=== PATIENT | female | born 1955 | race Caucasian/White ===

== ENCOUNTER 2018-12-27 14:17 | Emergency (ER) | payer BC ==
[~2018-12-27] VITALS: Ht 165.1 cm; Wt 99.8 kg
[~2018-12-27 14:17] MED LIST: ADVAIR 250/501 EA INH; ALBUTEROL0.09 MG/A2 INH; ALEVE220 MG PO; ANTIVERT25 MG PO; ASPIRIN81 M1 PO; CIPRO500 MG PO; CLEOCIN150 MG PO; DELTASONE10 MG PO; DOXYCYCLINE100 M2 PO; DULE1ARO1 INH; FUROSEMIDE20 M1 PO; GEMFIBROZIL600 MG PO; HYDROCODONE BIT1 T11 PO; HYDRODIURIL25 MG PO; LASIX PO; LISINOPRIL20 MG PO; MELOXICAM15 MG PO; METFORMIN750 MG PO; MUCINEX1200 MG PO; Motrin,Rufen800 MG PO; NATURE'S BLEND F1 MG PO; NORVASC10 MG PO; PEN-VEE K500 MG PO; POTASSIUM; PREDNICOT20 MG PO; SPIRIVA -- 3018 MCG PO; TESSALON PERLE200 MG PO; TRAMADOL HCL50 MG PO; TYLENOL325 M1 PO; VENTOLIN 02.5 MG/3 M INH; VOLTAREN50 M1 PO; ZESTRIL40 MG PO; ZITHROMAX Z PA250 MG PO; ZITHROMAX Z-PA250 MG PO; ZOFRAN4 MG PO
[2018-12-27] MEDS ORDERED: CEFADROXIL500 M1 PO (14:31)
[2018-12-27] MEDS ORDERED: SEPTDS PO (14:31)
== END 2018-12-27 14:47 | disposition home or self-care (01) ==
LOC: ED 14:17
DX: L02.31 Cutaneous abscess of buttock (principal); Z88.6 Allergy status to analgesic agent; Z79.899 Other long term (current) drug therapy; Z79.82 Long term (current) use of aspirin; Z87.891 Personal history of nicotine dependence

== ENCOUNTER 2019-01-16 12:29 | Emergency (ER) | payer BC ==
[~2019-01-16] VITALS: Ht 162.5 cm; Wt 92.1 kg
--- NOTE | ~2019-01-16 | EKG ---
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
[~2019-01-16 12:29] MED LIST changes: +CEFADROXIL500 M1 PO; +SEPTDS PO
[2019-01-16] MEDS ORDERED: GOOD NEIGHBOR M25 M1 PO (12:42)
[2019-01-16 12:45] LABS: BASO % 0.5 % (0.0-1.0); EOS # 0.1 10*3/uL (0.0-0.4); EOS % 2.3 % (1.0-4.0); HEMATOCRIT 37.2 % (37.0-47.0); HEMOGLOBIN 12.6 g/dl (12.0-16.0); LYMPH # 1.4 10*3/uL (1.3-4.4); LYMPH % 23.6 % (27.0-41.0); MEAN CELL VOLUME 91.6 fl (81.0-99.0); MEAN CORPUSCULAR HGB CONC 33.9 g/dl (33.0-37.0); MEAN PLATELET VOLUME 9.1 fl (9.6-12.3); MONO # 0.4 10*3/uL (0.1-1.0); MONO % 7.5 % (3.0-9.0); NEUT # 3.8 10*3/uL (2.3-7.9); NEUT % 66.1 % (47.0-73.0); PLATELET COUNT AUTOMATED 212 10*3/uL (130-400); RED BLOOD COUNT 4.06 10*6/uL (4.10-5.10); RED CELL DISTRI WIDTH 13.8 % (0-14.5); WHITE BLOOD COUNT 5.7 10*3/uL (4.8-10.8)
[2019-01-16 13:03] LABS: ACT PARTIAL THROMBO TIME 26.8 SECONDS (20.0-32.1)
[2019-01-16 13:05] LABS: ALBUMIN 3.8 gm/dl (3.1-4.5); ALKALINE PHOSPHATASE 88 U/L (45-117); BUN 14 mg/dl (7-24); CHLORIDE 109 mmol/L (98-107); CREATININE 0.78 mg/dL (0.55-1.02); SGOT/AST 15 IU/L (3-35); SGPT/ALT 15 U/L (12-78); SODIUM 142 mmol/L (136-145); TOTAL PROTEIN 7.1 gm/dL (6.4-8.2)
[2019-01-16 13:06] LABS: TROPONIN I < 0.015 ng/ml (<0.045)
[2019-01-16] MEDS ORDERED: ZOFRAN4 MG PO (14:47)
[2019-01-16] MEDS ORDERED: MECLIZINE HCL25 M2 PO (14:48)
== END 2019-01-16 14:53 | disposition home or self-care (01) ==
LOC: ED 12:29
PROVIDERS: Emergency Medicine
DX: R42 Dizziness and giddiness (principal); H53.8 Other visual disturbances; R11.0 Nausea; I10 Essential (primary) hypertension; E78.5 Hyperlipidemia, unspecified; E11.9 Type 2 diabetes mellitus without complications; R79.1 Abnormal coagulation profile; E66.01 Morbid (severe) obesity due to excess calories; Z88.6 Allergy status to analgesic agent; Z79.899 Other long term (current) drug therapy; Z79.82 Long term (current) use of aspirin; Z87.891 Personal history of nicotine dependence

== ENCOUNTER → 2020-04-06 | Outpatient (CLI) | payer BC | END | disposition home or self-care (01) | LOC: LAB 08:08 | PROVIDERS: ATTEND Psychiatry & Neurology Psychiatry | DX: Z13.29 Encounter for screening for other suspected endocrine disorder (principal); I10 Essential (primary) hypertension; E78.2 Mixed hyperlipidemia; Z13.228 Encounter for screening for other metabolic disorders ==

== ENCOUNTER 2020-07-03 11:45 | Emergency (ER) | payer BC ==
[~2020-07-03] VITALS: Wt 93.0 kg
[~2020-07-03 11:45] MED LIST changes: +GOOD NEIGHBOR M25 M1 PO; +MECLIZINE HCL25 M2 PO
== END 2020-07-03 17:54 | disposition home or self-care (01) ==
LOC: ED 11:45
DX: S83.92XA Sprain of unspecified site of left knee, initial encounter (principal); Z88.6 Allergy status to analgesic agent; Z79.899 Other long term (current) drug therapy; Z79.82 Long term (current) use of aspirin; Z87.891 Personal history of nicotine dependence; W01.0XXA Fall on same level from slipping, tripping and stumbling without subsequent striking against object, initial encounter; Y93.89 Activity, other specified; Y92.89 Other specified places as the place of occurrence of the external cause; Y99.8 Other external cause status

== ENCOUNTER 2020-12-22 12:54 | Inpatient (IN) | payer BC ==
[~2020-12-22] VITALS: Ht 154.9 cm; Wt 85.7 kg
[2020-12-22] VITALS (8 sets, daily range): BP systolic 136–159; BP diastolic 60–74
[2020-12-22 13:18] LABS: BASO % 0.4 % (0.0-1.0); EOS % 0.1 % (1.0-4.0); HEMATOCRIT 36.9 % (37.0-47.0); LYMPH # 0.8 10*3/uL (1.3-4.4); LYMPH % 7.4 % (27.0-41.0); MEAN CELL VOLUME 90.7 fl (81.0-99.0); MEAN CORPUSCULAR HGB 30.5 pg (27.0-31.0); MEAN CORPUSCULAR HGB CONC 33.6 g/dl (33.0-37.0); MEAN PLATELET VOLUME 9.2 fl (9.6-12.3); MONO % 9.3 % (3.0-9.0); NEUT # 9.1 10*3/uL (2.3-7.9); NEUT % 82.3 % (47.0-73.0); PLATELET COUNT AUTOMATED 309 10*3/uL (130-400); RED BLOOD COUNT 4.07 10*6/uL (4.10-5.10); RED CELL DISTRI WIDTH 13.1 % (0-14.5)
[2020-12-22 13:22] LABS: ABG BASE EXCESS -2.6 mmol/L (-2.0-2.0); ARTERIAL BLOOD GAS PH 7.46 (7.35-7.45)
[2020-12-22 13:34] LABS: ALBUMIN 2.9 gm/dl (3.1-4.5); ALKALINE PHOSPHATASE 104 U/L (45-117); BUN 11 mg/dl (7-24); CHLORIDE 103 mmol/L (98-107); CREATININE 0.76 mg/dL (0.55-1.02); POTASSIUM 3.6 mmol/L (3.5-5.1); SGOT/AST 17 IU/L (3-35); SGPT/ALT 14 U/L (12-78); SODIUM 132 mmol/L (136-145); TOTAL PROTEIN 7.7 gm/dL (6.4-8.2)
[2020-12-22 13:35] LABS: TROPONIN I < 0.015 ng/ml (<0.045)
[2020-12-22 17:57] LABS: BILIRUBIN Negative (Negative); BLOOD Trace-Lysed (Negative); CLARITY Clear (Clear); COLOR Yellow (Yellow); GLUCOSE Negative (Negative); KETONE Trace (Negative); LEUKO ESTERASE Negative (Negative); NITRITE Negative (Negative); PH 5.5 (4.5-8.0); SPECIFIC GRAVITY <= 1.005 (1.001-1.030); UROBILINOGEN 0.2 E.U./dl (0.0-1.0)
[2020-12-22 18:10] LABS: RBC 0-2 rbc/hpf (0-2)
[2020-12-23] VITALS: BP 166/81
[2020-12-23 06:08] LABS: ALBUMIN 2.7 gm/dl (3.1-4.5); ALKALINE PHOSPHATASE 103 U/L (45-117); CHLORIDE 104 mmol/L (98-107); CHOLESTEROL 144 mg/dL (<200); CREATININE 0.89 mg/dL (0.55-1.02); FREE T4 1.47 ng/dl (0.76-1.46); LDL CHOLESTEROL 89 mg/dL (9-159); POTASSIUM 3.8 mmol/L (3.5-5.1); SGOT/AST 34 IU/L (3-35); SGPT/ALT 23 U/L (12-78); SODIUM 138 mmol/L (136-145); TOTAL PROTEIN 7.8 gm/dL (6.4-8.2); TRIGLYCERIDES 145 mg/dl (<150)
[2020-12-23 06:12] LABS: HEMATOCRIT 35.6 % (37.0-47.0); MEAN CELL VOLUME 91.8 fl (81.0-99.0); MEAN CORPUSCULAR HGB 29.9 pg (27.0-31.0); MEAN CORPUSCULAR HGB CONC 32.6 g/dl (33.0-37.0); MEAN PLATELET VOLUME 9.6 fl (9.6-12.3); PLATELET COUNT AUTOMATED 283 10*3/uL (130-400); RED BLOOD COUNT 3.88 10*6/uL (4.10-5.10); RED CELL DISTRI WIDTH 13.2 % (0-14.5); WHITE BLOOD COUNT 8.6 10*3/uL (4.8-10.8)
[2020-12-23 06:23] LABS: BUN 20 mg/dl (7-24)
[2020-12-23 06:35] LABS: ACT PARTIAL THROMBO TIME 41.6 SECONDS (20.0-32.1); INTERNATIONAL NORM RATIO 1.1 (2.0-3.5)
[2020-12-23 07:17] LABS: TOTAL CELLS COUNTED 100 #CELLS
[2020-12-23 07:18] LABS: PLATELET SUFFICIENCY NORMAL (NORMAL); POLYCHROMASIA SLIGHT
[2020-12-23 08:00] VITALS: BP 155/95
[2020-12-23 12:00] VITALS: BP 145/66
[2020-12-23 16:00] VITALS: BP 139/69
[2020-12-23 20:00] VITALS: BP 136/79
[2020-12-24] VITALS: BP 140/69
[2020-12-24 08:12] LABS: HEMATOCRIT 34.7 % (37.0-47.0); MEAN CELL VOLUME 90.1 fl (81.0-99.0); MEAN CORPUSCULAR HGB 30.1 pg (27.0-31.0); MEAN CORPUSCULAR HGB CONC 33.4 g/dl (33.0-37.0); MEAN PLATELET VOLUME 9.8 fl (9.6-12.3); PLATELET COUNT AUTOMATED 349 10*3/uL (130-400); RED BLOOD COUNT 3.85 10*6/uL (4.10-5.10); RED CELL DISTRI WIDTH 13.2 % (0-14.5); WHITE BLOOD COUNT 12.7 10*3/uL (4.8-10.8)
[2020-12-24 08:24] LABS: CHLORIDE 106 mmol/L (98-107); CREATININE 0.78 mg/dL (0.55-1.02); POTASSIUM 3.5 mmol/L (3.5-5.1); SODIUM 137 mmol/L (136-145)
[2020-12-24 08:39] LABS: PLATELET SUFFICIENCY NORMAL (NORMAL); TOTAL CELLS COUNTED 100 #CELLS
[2020-12-24 08:53] LABS: BUN 33 mg/dl (7-24)
[2020-12-24 14:53] VITALS: BP 133/70
[2020-12-24 16:00] VITALS: BP 124/59
[2020-12-24 20:00] VITALS: BP 167/83
[2020-12-25] VITALS: BP 151/71
[2020-12-25 06:42] LABS: BASO % 0.2 % (0.0-1.0); LYMPH # 0.7 10*3/uL (1.3-4.4); LYMPH % 5.6 % (27.0-41.0); MEAN CELL VOLUME 90.4 fl (81.0-99.0); MEAN CORPUSCULAR HGB 29.2 pg (27.0-31.0); MEAN CORPUSCULAR HGB CONC 32.3 g/dl (33.0-37.0); MEAN PLATELET VOLUME 9.3 fl (9.6-12.3); MONO # 0.7 10*3/uL (0.1-1.0); MONO % 5.7 % (3.0-9.0); NEUT # 10.1 10*3/uL (2.3-7.9); NEUT % 86.2 % (47.0-73.0); PLATELET COUNT AUTOMATED 376 10*3/uL (130-400); RED BLOOD COUNT 3.87 10*6/uL (4.10-5.10); RED CELL DISTRI WIDTH 13.1 % (0-14.5); WHITE BLOOD COUNT 11.7 10*3/uL (4.8-10.8)
[2020-12-25 06:58] LABS: ALBUMIN 2.8 gm/dl (3.1-4.5); BUN 30 mg/dl (7-24); CHLORIDE 108 mmol/L (98-107); CREATININE 0.73 mg/dL (0.55-1.02); POTASSIUM 3.3 mmol/L (3.5-5.1); SGOT/AST 35 IU/L (3-35); SGPT/ALT 65 U/L (12-78); SODIUM 141 mmol/L (136-145); TOTAL PROTEIN 6.9 gm/dL (6.4-8.2)
[2020-12-25 07:01] LABS: ALKALINE PHOSPHATASE 99 U/L (45-117)
[2020-12-25 08:00] VITALS: BP 166/70
[2020-12-25 12:00] VITALS: BP 152/68
[2020-12-25] MEDS ORDERED: PREDNISONE10 MG PO (13:26)
[2020-12-25] MEDS ORDERED: ZITHROMAX250 MG PO (13:26)
== END 2020-12-25 16:30 | disposition home or self-care (01) | DRG 871 ==
LOC: ED 12:54 → EDHOLD 14:01 → 4E 14:01
PROVIDERS: Emergency Medicine; Social Worker Clinical; Student in an Organized Health Care Education/Training Program; ADMIT Student in an Organized Health Care Education/Training Program; ATTEND Student in an Organized Health Care Education/Training Program
DX: A41.9 Sepsis, unspecified organism (principal); J96.01 Acute respiratory failure with hypoxia; J69.0 Pneumonitis due to inhalation of food and vomit; E87.1 Hypo-osmolality and hyponatremia; E44.0 Moderate protein-calorie malnutrition; E87.3 Alkalosis; Z20.822 Contact with and (suspected) exposure to COVID-19; J43.9 Emphysema, unspecified; I10 Essential (primary) hypertension; E78.5 Hyperlipidemia, unspecified; R73.9 Hyperglycemia, unspecified; E78.2 Mixed hyperlipidemia; E66.01 Morbid (severe) obesity due to excess calories; R65.20 Severe sepsis without septic shock; D32.9 Benign neoplasm of meninges, unspecified; E87.6 Hypokalemia; E55.9 Vitamin D deficiency, unspecified; Z98.891 History of uterine scar from previous surgery; Z88.6 Allergy status to analgesic agent; Z88.5 Allergy status to narcotic agent; Z87.891 Personal history of nicotine dependence; Z79.82 Long term (current) use of aspirin; Z79.899 Other long term (current) drug therapy; Z98.51 Tubal ligation status

== ENCOUNTER 2021-04-14 11:32 | Emergency (ER) | payer MEDICARE ==
[~2021-04-14 11:32] MED LIST changes: +PREDNISONE10 MG PO; +ZITHROMAX250 MG PO
== END 2021-04-14 12:09 | disposition home or self-care (01) ==
LOC: ED 11:32
DX: H11.32 Conjunctival hemorrhage, left eye (principal); Z88.6 Allergy status to analgesic agent; Z79.899 Other long term (current) drug therapy; Z79.82 Long term (current) use of aspirin; Z87.891 Personal history of nicotine dependence

== ENCOUNTER 2023-09-08 18:53 | Emergency (ER) | payer MEDICARE ==
[2023-09-08 19:26] LABS: BASO # 0.1 10*3/uL (0.0-0.1); BASO % 0.6 % (0.0-1.0); EOS # 0.1 10*3/uL (0.0-0.4); EOS % 1.3 % (1.0-4.0); HEMATOCRIT 39.6 % (37.0-47.0); LYMPH # 1.6 10*3/uL (1.3-4.4); LYMPH % 19.9 % (27.0-41.0); MEAN CELL VOLUME 90.8 fl (81.0-99.0); MEAN CORPUSCULAR HGB 29.6 pg (27.0-31.0); MEAN CORPUSCULAR HGB CONC 32.6 g/dl (33.0-37.0); MEAN PLATELET VOLUME 9.5 fl (9.6-12.3); MONO # 0.4 10*3/uL (0.1-1.0); MONO % 5.1 % (3.0-9.0); NEUT # 5.7 10*3/uL (2.3-7.9); NEUT % 72.8 % (47.0-73.0); PLATELET COUNT AUTOMATED 260 10*3/uL (130-400); RED BLOOD COUNT 4.36 10*6/uL (4.10-5.10); RED CELL DISTRI WIDTH 13.9 % (0-14.5); WHITE BLOOD COUNT 7.8 10*3/uL (4.8-10.8)
[2023-09-08 19:42] LABS: ALKALINE PHOSPHATASE 127 U/L (46-116); BUN 15 mg/dl (9-23); CHLORIDE 105 mmol/L (98-107); LIPASE 33 U/L (12-53); POTASSIUM 3.1 mmol/L (3.4-5.1); TOTAL PROTEIN 6.8 gm/dL (6.0-8.0)
[2023-09-08 19:49] LABS: SGPT/ALT < 7 U/L (5-49)
[2023-09-08 19:52] LABS: COLOR Yellow (Yellow)
[2023-09-08 19:53] LABS: BILIRUBIN Negative (Negative); BLOOD Trace-Intact (Negative); CLARITY Clear (Clear); GLUCOSE Negative (Negative); KETONE Negative (Negative); LEUKO ESTERASE Negative (Negative); NITRITE Negative (Negative); UROBILINOGEN 0.2 E.U./dl (0.0-1.0)
[2023-09-08 19:56] LABS: BACTERIA 1+
[2023-09-08] MEDS ORDERED: POTASSIUM CHLORIDE 20 MEQ TAB PO ONE (20:10)
[2023-09-08] MEDS ORDERED: Ciprofloxacin Hydrochloride 500 MG TAB PO ONE (20:10)
[2023-09-08] MEDS ORDERED: CIPRO500 MG PO (20:12)
[2023-09-08] MEDS ORDERED: SODIUM CHLORIDE 0.9% 500 ML IV ONE (20:15)
== END 2023-09-08 21:12 | disposition home or self-care (01) ==
LOC: ED 18:53
PROVIDERS: Internal Medicine
DX: N39.0 Urinary tract infection, site not specified (principal); E87.6 Hypokalemia; J44.9 Chronic obstructive pulmonary disease, unspecified; Z88.6 Allergy status to analgesic agent; Z88.5 Allergy status to narcotic agent; Z79.2 Long term (current) use of antibiotics; Z79.899 Other long term (current) drug therapy; Z79.82 Long term (current) use of aspirin; Z98.890 Other specified postprocedural states; Z98.51 Tubal ligation status; Z90.711 Acquired absence of uterus with remaining cervical stump; Z87.891 Personal history of nicotine dependence

== ENCOUNTER 2024-01-23 15:15 | Emergency (ER) | payer MEDICARE ==
[~2024-01-23] VITALS: Ht 165.1 cm
[2024-01-23] MEDS ORDERED: METHOCARBAMOL500 M1 PO (15:53)
[2024-01-23] MEDS ORDERED: methylPREDNISolone sod succ 125 MG VIAL IM ONE (15:55)
[2024-01-23] MEDS ORDERED: Ketorolac Tromethamine 30 MG/ML VIAL IM ONE (15:55)
== END 2024-01-23 16:07 | disposition home or self-care (01) ==
LOC: ED 15:15
DX: M54.42 Lumbago with sciatica, left side (principal); M25.562 Pain in left knee; I10 Essential (primary) hypertension; J45.909 Unspecified asthma, uncomplicated; Z88.6 Allergy status to analgesic agent; Z88.5 Allergy status to narcotic agent; Z98.890 Other specified postprocedural states; Z98.51 Tubal ligation status; Z90.710 Acquired absence of both cervix and uterus; Z87.891 Personal history of nicotine dependence

== ENCOUNTER 2024-02-01 14:15 | Inpatient (IN) | payer MEDICARE ==
[~2024-02-01] VITALS: Ht 160 cm; Wt 76.4 kg
[~2024-02-01 14:15] MED LIST changes: +METHOCARBAMOL500 M1 PO
[2024-02-01] MEDS ORDERED: CIPRO500 MG PO (15:21)
[2024-02-01] MEDS ORDERED: VITAMIN D350 MCG PO (15:21)
[2024-02-01] MEDS ORDERED: LORazepam 1 MG TAB PO PRN (15:35)
[2024-02-01] MEDS ORDERED: LORazepam 2 MG/ML VIAL IM PRN (15:35)
[2024-02-01] MEDS ORDERED: Ziprasidone Mesylate 20 MG VIAL IM PRN (15:40)
[2024-02-01 16:21] VITALS: BP 148/68
[2024-02-01] MEDS ORDERED: Water, Sterile 10 ML VIAL IM PRN (16:50)
[2024-02-01] MEDS ORDERED: MG-AL HYDROXIDE/SIMETICONE 30 ML UDC PO PRN (17:30)
[2024-02-01] MEDS ORDERED: ACETAMINOPHEN 325 MG TAB PO PRN (17:30)
[2024-02-01] MEDS ORDERED: Magnesium Hydroxide 30 ML UDC PO PRN (17:30)
[2024-02-01] MEDS ORDERED: Menthol/Zinc Oxide 4 GM THIN T PRN (17:40)
[2024-02-01 20:00] VITALS: BP 178/80
[2024-02-01] MEDS ORDERED: LISINOPRIL 20 MG TAB PO SCH (20:20)
[2024-02-01] MEDS ORDERED: hydrOXYzine pamoate 25 MG CAP PO PRN (20:30)
[2024-02-01] MEDS ORDERED: RISPERIDONE 0.5 MG TAB PO SCH (21:00)
[2024-02-02 07:19] LABS: BASO % 0.4 % (0.0-1.0); EOS # 0.1 10*3/uL (0.0-0.4); EOS % 1.6 % (1.0-4.0); HEMATOCRIT 33.7 % (37.0-47.0); LYMPH % 18.3 % (27.0-41.0); MEAN CELL VOLUME 89.6 fl (81.0-99.0); MEAN CORPUSCULAR HGB 30.1 pg (27.0-31.0); MEAN CORPUSCULAR HGB CONC 33.5 g/dl (33.0-37.0); MEAN PLATELET VOLUME 9.4 fl (9.6-12.3); MONO # 0.3 10*3/uL (0.1-1.0); MONO % 6.2 % (3.0-9.0); NEUT % 72.6 % (47.0-73.0); PLATELET COUNT AUTOMATED 208 10*3/uL (130-400); RED BLOOD COUNT 3.76 10*6/uL (4.10-5.10); RED CELL DISTRI WIDTH 14.2 % (0-14.5); WHITE BLOOD COUNT 5.5 10*3/uL (4.8-10.8)
[2024-02-02 08:10] VITALS: BP 138/60
[2024-02-02 08:13] LABS: ALKALINE PHOSPHATASE 88 U/L (46-116); BUN 10 mg/dl (9-23); CHLORIDE 106 mmol/L (98-107); CHOLESTEROL 115 mg/dL (<200); LDL CHOLESTEROL 50 mg/dL (9-159); POTASSIUM 3.8 mmol/L (3.4-5.1); TOTAL PROTEIN 5.7 gm/dL (6.0-8.0); TRIGLYCERIDES 221 mg/dl (<150)
[2024-02-02 08:56] LABS: SGPT/ALT < 7 U/L (5-49)
[2024-02-02 09:35] LABS: VITAMIN D, 25-HYDROXY 32.8 ng/mL (30-100)
[2024-02-02] MEDS ORDERED: Meloxicam 15 MG TAB PO SCH (10:00)
[2024-02-02] MEDS ORDERED: Ciprofloxacin Hydrochloride 500 MG TAB PO SCH (10:00)
[2024-02-02] MEDS ORDERED: GEMFIBROZIL 600 MG TAB PO SCH (10:00)
[2024-02-02] MEDS ORDERED: Cholecalciferol 2,000 UNIT TABLET (50 MCG) PO SCH (10:00)
[2024-02-02 14:00] VITALS: BP 138/60
[2024-02-02] MEDS ORDERED: NYSTATIN 15 GM BOT T PRN ×2 (17:10)
[2024-02-02 20:00] VITALS: BP 128/58
[2024-02-02] MEDS ORDERED: Memantine Hydrochloride 5 MG TAB PO SCH (21:00)
[2024-02-03 07:38] VITALS: BP 124/66
[2024-02-03] MEDS ORDERED: Rivastigmine Tartrate 4.6 MG/24 HR PATCH T SCH (09:00)
[2024-02-03] MEDS ORDERED: Folic Acid/Vitamin B Complex 1 TAB TAB PO SCH (10:00)
[2024-02-03 14:00] VITALS: BP 124/66
[2024-02-03 20:00] VITALS: BP 130/61
[2024-02-03] MEDS ORDERED: Memantine Hydrochloride 5 MG TAB PO SCH (21:00)
[2024-02-04 07:54] VITALS: BP 130/58
[2024-02-04] MEDS ORDERED: Memantine Hydrochloride 5 MG TAB PO SCH (09:00)
[2024-02-04] MEDS ORDERED: LIDOCAINE 1 EA PATCH T SCH (09:00)
[2024-02-04] MEDS ORDERED: Rivastigmine Tartrate 9.5 MG/24 HR PATCH T SCH (09:00)
[2024-02-04 14:00] VITALS: BP 130/58
[2024-02-04 20:00] VITALS: BP 113/55
[2024-02-04] MEDS ORDERED: Memantine Hydrochloride 10 MG TAB PO SCH (21:00)
[2024-02-05 07:59] LABS: POTASSIUM 4.9 mmol/L (3.4-5.1)
[2024-02-05 08:00] VITALS: BP 141/55
[2024-02-05] MEDS ORDERED: SODIUM CHLORIDE 0.9% 1,000 ML IV ONE (11:00)
[2024-02-05 20:00] VITALS: BP 141/59
[2024-02-06 06:47] LABS: POTASSIUM 4.4 mmol/L (3.4-5.1)
[2024-02-06 08:00] VITALS: BP 148/89
[2024-02-06] MEDS ORDERED: amLODIPine besylate 5 MG TAB PO SCH (09:00)
[2024-02-06 19:11] VITALS: BP 120/60
[2024-02-06] MEDS ORDERED: RISPERIDONE 1 MG TAB PO SCH (21:00)
[2024-02-07 08:00] VITALS: BP 154/79
[2024-02-07] MEDS ORDERED: amLODIPine besylate 10 MG TAB PO SCH (09:00)
[2024-02-07] MEDS ORDERED: RIVASTIGMINE 13.3 MG/24 HR TDM T SCH (09:00)
[2024-02-07 18:55] VITALS: BP 127/55
[2024-02-07] MEDS ORDERED: Memantine Hydrochloride 10 MG TAB PO SCH (21:00)
[2024-02-07] MEDS ORDERED: ZOLPIDEM TARTRATE 5 MG TAB PO SCH (21:00)
[2024-02-08 08:00] VITALS: BP 135/70
[2024-02-08 08:03] LABS: POTASSIUM 4.9 mmol/L (3.4-5.1)
[2024-02-08 20:00] VITALS: BP 116/60
[2024-02-09 08:08] VITALS: BP 123/57
[2024-02-09 20:00] VITALS: BP 111/52
[2024-02-09] MEDS ORDERED: Mirtazapine 15 MG TAB PO SCH (21:00)
[2024-02-09] MEDS ORDERED: RISPERIDONE 0.5 MG TAB PO SCH (21:00)
[2024-02-10 08:03] VITALS: BP 135/74
[2024-02-10 20:00] VITALS: BP 147/69
[2024-02-10] MEDS ORDERED: QUETIAPINE FUMARATE 25 MG TAB PO SCH (21:00)
[2024-02-11 07:37] VITALS: BP 123/58
[2024-02-11 20:00] VITALS: BP 128/60
[2024-02-12 07:48] VITALS: BP 134/65
[2024-02-12 19:17] VITALS: BP 123/66
[2024-02-13 08:00] VITALS: BP 128/70
[2024-02-13 09:06] LABS: BASO # 0.1 10*3/uL (0.0-0.1); BASO % 0.9 % (0.0-1.0); EOS # 0.2 10*3/uL (0.0-0.4); EOS % 2.8 % (1.0-4.0); HEMATOCRIT 31.1 % (37.0-47.0); LYMPH # 1.3 10*3/uL (1.3-4.4); MEAN CORPUSCULAR HGB 29.3 pg (27.0-31.0); MEAN CORPUSCULAR HGB CONC 31.8 g/dl (33.0-37.0); MEAN PLATELET VOLUME 9.1 fl (9.6-12.3); MONO # 0.4 10*3/uL (0.1-1.0); MONO % 7.4 % (3.0-9.0); NEUT # 3.8 10*3/uL (2.3-7.9); NEUT % 65.6 % (47.0-73.0); PLATELET COUNT AUTOMATED 233 10*3/uL (130-400); RED BLOOD COUNT 3.38 10*6/uL (4.10-5.10); RED CELL DISTRI WIDTH 14.3 % (0-14.5); WHITE BLOOD COUNT 5.8 10*3/uL (4.8-10.8)
[2024-02-13 09:26] LABS: ALKALINE PHOSPHATASE 82 U/L (46-116); BUN 21 mg/dl (9-23); CHLORIDE 105 mmol/L (98-107); POTASSIUM 4.6 mmol/L (3.4-5.1); TOTAL PROTEIN 5.8 gm/dL (6.0-8.0)
[2024-02-13 09:29] LABS: SGPT/ALT < 7 U/L (5-49)
[2024-02-13 19:25] VITALS: BP 113/55
[2024-02-14 08:00] VITALS: BP 140/70
[2024-02-14 20:00] VITALS: BP 138/62
[2024-02-15 08:28] VITALS: BP 117/55
[2024-02-15] MEDS ORDERED: MIRTAZAPINE15 M2 PO (09:21)
[2024-02-15] MEDS ORDERED: MEMANTINE HCL10 MG PO (09:21)
[2024-02-15] MEDS ORDERED: FOLTABS 800 TA1 EACH PO (09:21)
[2024-02-15] MEDS ORDERED: QUETIAPINE FUMA25 MG PO (09:21)
[2024-02-15] MEDS ORDERED: VITAMIN D350 MCG PO (09:21)
[2024-02-15] MEDS ORDERED: RIVASTIGMINE1 EAC2 T (09:21)
[2024-02-15] MEDS ORDERED: AMLODIPINE BESY10 MG PO (10:45)
== END 2024-02-15 20:07 | disposition home or self-care (01) | DRG 885 ==
LOC: 3N 14:15 → 4E 16:43 → 3N 17:00
PROVIDERS: Nurse Practitioner; Registered Nurse; ADMIT Psychiatry & Neurology Psychiatry; ATTEND Psychiatry & Neurology Psychiatry
PROC: GZHZZZZ Group Psychotherapy (ICD-10-PCS; principal; 2024-02-02)
PROC: GZ51ZZZ Individual Psychotherapy, Behavioral (ICD-10-PCS; 2024-02-02)
DX: F33.3 Major depressive disorder, recurrent, severe with psychotic symptoms (principal); N17.0 Acute kidney failure with tubular necrosis; E11.65 Type 2 diabetes mellitus with hyperglycemia; G93.41 Metabolic encephalopathy; F23 Brief psychotic disorder; N30.01 Acute cystitis with hematuria; E87.1 Hypo-osmolality and hyponatremia; E44.0 Moderate protein-calorie malnutrition; F02.82 Dementia in other diseases classified elsewhere, unspecified severity, with psychotic disturbance; E55.9 Vitamin D deficiency, unspecified; E87.6 Hypokalemia; E66.01 Morbid (severe) obesity due to excess calories; G30.9 Alzheimer's disease, unspecified; J44.9 Chronic obstructive pulmonary disease, unspecified; I10 Essential (primary) hypertension; E78.5 Hyperlipidemia, unspecified; D64.9 Anemia, unspecified; S83.8X2S Sprain of other specified parts of left knee, sequela; X58.XXXS Exposure to other specified factors, sequela; J43.9 Emphysema, unspecified; R54 Age-related physical debility; Z66 Do not resuscitate; Z88.5 Allergy status to narcotic agent; Z88.6 Allergy status to analgesic agent; Z98.51 Tubal ligation status; Z98.891 History of uterine scar from previous surgery; Z82.49 Family history of ischemic heart disease and other diseases of the circulatory system; Z79.899 Other long term (current) drug therapy

== ENCOUNTER 2024-04-07 16:52 | Inpatient (IN) | payer MEDICARE ==
[~2024-04-07] VITALS: Ht 165.1 cm; Wt 81.4 kg
[~2024-04-07 16:52] MED LIST changes: +AMLODIPINE BESY10 MG PO; +FOLTABS 800 TA1 EACH PO; +MEMANTINE HCL10 MG PO; +MIRTAZAPINE15 M2 PO; +QUETIAPINE FUMA25 MG PO; +RIVASTIGMINE1 EAC2 T; +VITAMIN D350 MCG PO
[2024-04-07 16:59] VITALS: BP 136/78
[2024-04-07] MEDS ORDERED: Acetaminophen/Oxycodone 5 MG/325 MG TABLET PO ONE (17:00)
[2024-04-07] MEDS ORDERED: SEROQUEL50 MG PO (17:29)
[2024-04-07] MEDS ORDERED: LISINOPRIL40 MG PO (17:30)
[2024-04-07] MEDS ORDERED: MECLIZINE HCL25 M2 PO (17:31)
[2024-04-07] MEDS ORDERED: SODIUM CHLORIDE 0.9% 1,000 ML IV ONE (17:40)
[2024-04-07] MEDS ORDERED: Ondansetron Hydrochloride 4 MG/2 ML VIAL IV ONE (17:45)
[2024-04-07] MEDS ORDERED: MORPHINE Sulfate 2 MG/ML SYR IV ONE (17:45)
[2024-04-07 18:01] LABS: BASO % 0.2 % (0.0-1.0); EOS # 0.1 10*3/uL (0.0-0.4); EOS % 1.4 % (1.0-4.0); HEMATOCRIT 32.1 % (37.0-47.0); LYMPH # 0.9 10*3/uL (1.3-4.4); LYMPH % 10.4 % (27.0-41.0); MEAN CELL VOLUME 93.9 fl (81.0-99.0); MEAN CORPUSCULAR HGB 30.4 pg (27.0-31.0); MEAN CORPUSCULAR HGB CONC 32.4 g/dl (33.0-37.0); MEAN PLATELET VOLUME 9.2 fl (9.6-12.3); MONO # 0.6 10*3/uL (0.1-1.0); MONO % 6.9 % (3.0-9.0); NEUT # 6.8 10*3/uL (2.3-7.9); NEUT % 80.7 % (47.0-73.0); PLATELET COUNT AUTOMATED 186 10*3/uL (130-400); RED BLOOD COUNT 3.42 10*6/uL (4.10-5.10); RED CELL DISTRI WIDTH 14.4 % (0-14.5); WHITE BLOOD COUNT 8.5 10*3/uL (4.8-10.8)
[2024-04-07 18:23] LABS: POTASSIUM 3.3 mmol/L (3.4-5.1)
[2024-04-07] MEDS ORDERED: Ondansetron Hydrochloride 4 MG/2 ML VIAL IV PRN (18:25)
[2024-04-07] MEDS ORDERED: MORPHINE Sulfate 2 MG/ML SYR IV PRN (18:25)
[2024-04-07 18:32] LABS: ACT PARTIAL THROMBO TIME 28.5 SECONDS (20.0-32.1)
[2024-04-07] MEDS ORDERED: POTASSIUM CHLORIDE IN WATER 100 ML IV SCH (19:00)
[2024-04-07] MEDS ORDERED: SODIUM CHLORIDE 0.9% 1,000 ML IV SCH (19:20)
[2024-04-07] MEDS ORDERED: BISACODYL 5 MG TAB PO PRN (19:20)
[2024-04-07] MEDS ORDERED: Magnesium Hydroxide 30 ML UDC PO PRN (19:20)
[2024-04-07] MEDS ORDERED: POTASSIUM CHLORIDE 20 MEQ TAB PO ONE (19:25)
[2024-04-07 19:28] VITALS: BP 122/60
[2024-04-07 21:54] VITALS: BP 120/66
[2024-04-08] VITALS (11 sets, daily range): BP systolic 108–171; BP diastolic 60–93
[2024-04-08 07:22] LABS: BASO % 0.4 % (0.0-1.0); EOS # 0.2 10*3/uL (0.0-0.4); HEMATOCRIT 32.8 % (37.0-47.0); LYMPH # 1.2 10*3/uL (1.3-4.4); LYMPH % 17.5 % (27.0-41.0); MEAN CELL VOLUME 92.7 fl (81.0-99.0); MEAN CORPUSCULAR HGB 30.2 pg (27.0-31.0); MEAN CORPUSCULAR HGB CONC 32.6 g/dl (33.0-37.0); MEAN PLATELET VOLUME 9.1 fl (9.6-12.3); MONO # 0.4 10*3/uL (0.1-1.0); MONO % 6.4 % (3.0-9.0); NEUT % 72.6 % (47.0-73.0); PLATELET COUNT AUTOMATED 179 10*3/uL (130-400); RED BLOOD COUNT 3.54 10*6/uL (4.10-5.10); RED CELL DISTRI WIDTH 14.7 % (0-14.5); WHITE BLOOD COUNT 6.9 10*3/uL (4.8-10.8)
[2024-04-08 07:47] LABS: BUN 14 mg/dl (9-23); CHLORIDE 111 mmol/L (98-107); POTASSIUM 4.2 mmol/L (3.4-5.1)
[2024-04-08] MEDS ORDERED: TRANEXAMIC ACID IN NACL,ISO-OS 100 ML IV ONE ×2 (10:00→14:00)
[2024-04-08] MEDS ORDERED: Cholecalciferol 2,000 UNIT TABLET (50 MCG) PO SCH (10:00)
[2024-04-08] MEDS ORDERED: ceFAZolin sodium/sodium chlor 20 ML IV ONE ×2 (10:00→14:00)
[2024-04-08] MEDS ORDERED: Bupivacaine Hydrochloride/Ep2 30 ML VIAL ONE ×2 (13:28→13:56)
[2024-04-08] MEDS ORDERED: ACETAMINOPHEN 0 ML IV ONE (13:29)
[2024-04-08] MEDS ORDERED: Lactated Ringer's Solution 1,000 ML IV ONE ×3 (13:40→15:37)
[2024-04-08] MEDS ORDERED: ACETAMINOPHEN 100 ML IV ONE (13:56)
[2024-04-08] MEDS ORDERED: EPINEPHrine/Lidocaine Hydroc 20 ML VIAL ONE (14:10)
[2024-04-08] MEDS ORDERED: ceFAZolin sodium 1 GM in SYRINGE INFUSION 10 ML IV SCH (16:00)
[2024-04-08] MEDS ORDERED: HYDROmorphONE Hydrochloride 0.5 MG/0.5 ML SYRINGE IV PRN (16:50)
[2024-04-08] MEDS ORDERED: HYDROmorphONE Hydrochloride 0.5 MG/0.5 ML SYRINGE ONE (17:07)
[2024-04-09] VITALS: BP 145/66
[2024-04-09 04:00] VITALS: BP 140/67
[2024-04-09 07:34] LABS: BASO % 0.1 % (0.0-1.0); HEMATOCRIT 30.9 % (37.0-47.0); LYMPH # 0.5 10*3/uL (1.3-4.4); LYMPH % 5.1 % (27.0-41.0); MEAN CELL VOLUME 92.8 fl (81.0-99.0); MEAN CORPUSCULAR HGB CONC 32.4 g/dl (33.0-37.0); MONO # 0.4 10*3/uL (0.1-1.0); MONO % 4.2 % (3.0-9.0); NEUT % 89.9 % (47.0-73.0); PLATELET COUNT AUTOMATED 187 10*3/uL (130-400); RED BLOOD COUNT 3.33 10*6/uL (4.10-5.10); RED CELL DISTRI WIDTH 14.2 % (0-14.5); WHITE BLOOD COUNT 8.9 10*3/uL (4.8-10.8)
[2024-04-09 07:53] LABS: BUN 13 mg/dl (9-23); CHLORIDE 105 mmol/L (98-107); POTASSIUM 4.5 mmol/L (3.4-5.1)
[2024-04-09 08:00] VITALS: BP 151/65
[2024-04-09] MEDS ORDERED: fentaNYL CITRATE 100 MCG/2 ML VIAL IV ONE (09:33)
[2024-04-09] MEDS ORDERED: SEVOFLURANE 250 ML BOT INH ONE (09:33)
[2024-04-09] MEDS ORDERED: SUGAMMADEX SODIUM 200 MG/2 ML VIAL IV ONE (09:33)
[2024-04-09] MEDS ORDERED: DEXMEDETOMIDINE HCL 200 MCG/2 ML VIAL IV ONE (09:33)
[2024-04-09] MEDS ORDERED: ROCURONIUM BROMIDE 50 MG/5 ML SYRINGE IV ONE (09:33)
[2024-04-09] MEDS ORDERED: Dexamethasone Sodium Phospha 4 MG/ML VIAL IV ONE (09:33)
[2024-04-09] MEDS ORDERED: Ketamine Hydrochloride 500 MG/10 ML VIAL IV ONE (09:33)
[2024-04-09] MEDS ORDERED: MAGNESIUM SULFATE 1 GM/2 ML VIAL IV ONE (09:33)
[2024-04-09] MEDS ORDERED: Ondansetron Hydrochloride 4 MG/2 ML VIAL IV ONE (09:33)
[2024-04-09] MEDS ORDERED: PROPOFOL 200 MG/20 ML VIAL IV ONE (09:33)
[2024-04-09 12:00] VITALS: BP 137/59
[2024-04-09 15:53] VITALS: BP 135/65
[2024-04-09] MEDS ORDERED: Enoxaparin Sodium 40 MG/0.4 ML SYR SC SCH (18:00)
[2024-04-09] MEDS ORDERED: Meclizine Hydrochloride 25 MG TAB PO PRN (19:55)
[2024-04-09 20:00] VITALS: BP 134/66
[2024-04-09] MEDS ORDERED: QUETIAPINE FUMARATE 50 MG TAB PO SCH (22:00)
[2024-04-09] MEDS ORDERED: Mirtazapine 15 MG TAB PO SCH (22:00)
[2024-04-09] MEDS ORDERED: Memantine Hydrochloride 10 MG TAB PO SCH (22:00)
[2024-04-10] VITALS: BP 141/76
[2024-04-10] MEDS ORDERED: RIVASTIGMINE1 EAC2 T (05:25)
[2024-04-10 06:25] LABS: BASO % 0.2 % (0.0-1.0); EOS # 0.1 10*3/uL (0.0-0.4); EOS % 0.8 % (1.0-4.0); HEMATOCRIT 30.8 % (37.0-47.0); LYMPH # 1.5 10*3/uL (1.3-4.4); LYMPH % 15.1 % (27.0-41.0); MEAN CELL VOLUME 93.1 fl (81.0-99.0); MEAN CORPUSCULAR HGB 30.8 pg (27.0-31.0); MEAN CORPUSCULAR HGB CONC 33.1 g/dl (33.0-37.0); MEAN PLATELET VOLUME 9.1 fl (9.6-12.3); MONO # 0.8 10*3/uL (0.1-1.0); MONO % 7.5 % (3.0-9.0); NEUT # 7.5 10*3/uL (2.3-7.9); NEUT % 75.9 % (47.0-73.0); PLATELET COUNT AUTOMATED 225 10*3/uL (130-400); RED BLOOD COUNT 3.31 10*6/uL (4.10-5.10); RED CELL DISTRI WIDTH 14.4 % (0-14.5); WHITE BLOOD COUNT 9.9 10*3/uL (4.8-10.8)
[2024-04-10 08:00] VITALS: BP 118/66
[2024-04-10] MEDS ORDERED: amLODIPine besylate 10 MG TAB PO SCH (10:00)
[2024-04-10] MEDS ORDERED: LISINOPRIL 40 MG TAB PO SCH (10:00)
[2024-04-10] MEDS ORDERED: ACETAMINOPHEN 325 MG TAB PO PRN (10:30)
[2024-04-10 12:00] VITALS: BP 141/65
[2024-04-10] MEDS ORDERED: Menthol/Zinc Oxide 4 GM THIN T PRN (13:15)
[2024-04-10 16:00] VITALS: BP 141/65
[2024-04-10 20:00] VITALS: BP 149/72
[2024-04-10] MEDS ORDERED: Menthol/Zinc Oxide 4 GM THIN T SCH (22:00)
[2024-04-10] MEDS ORDERED: NYSTATIN 15 GM BOT T SCH (22:00)
[2024-04-11] VITALS: BP 118/54
[2024-04-11] MEDS ORDERED: HEEL PROTECTOR DEVICE ONE ×2 (01:11)
[2024-04-11 02:00] VITALS: BP 118/54
[2024-04-11 07:01] LABS: BASO % 0.3 % (0.0-1.0); EOS # 0.1 10*3/uL (0.0-0.4); EOS % 1.5 % (1.0-4.0); HEMATOCRIT 30.7 % (37.0-47.0); LYMPH # 1.1 10*3/uL (1.3-4.4); LYMPH % 15.1 % (27.0-41.0); MEAN CELL VOLUME 91.6 fl (81.0-99.0); MEAN CORPUSCULAR HGB 29.9 pg (27.0-31.0); MEAN CORPUSCULAR HGB CONC 32.6 g/dl (33.0-37.0); MEAN PLATELET VOLUME 9.1 fl (9.6-12.3); MONO # 0.6 10*3/uL (0.1-1.0); NEUT # 5.6 10*3/uL (2.3-7.9); NEUT % 74.6 % (47.0-73.0); PLATELET COUNT AUTOMATED 215 10*3/uL (130-400); RED BLOOD COUNT 3.35 10*6/uL (4.10-5.10); RED CELL DISTRI WIDTH 14.6 % (0-14.5); WHITE BLOOD COUNT 7.5 10*3/uL (4.8-10.8)
[2024-04-11 08:00] VITALS: BP 138/60
[2024-04-11] MEDS ORDERED: HYDROmorphONE Hydrochloride 0.5 MG/0.5 ML SYRINGE IV ONE (08:35)
[2024-04-11 12:00] VITALS: BP 134/62
[2024-04-11] MEDS ORDERED: Acetaminophen/Hydrocodone 5 MG/325 MG TABLET PO ONE (15:00)
[2024-04-11 16:00] VITALS: BP 105/60; BP 108/46
[2024-04-11 20:00] VITALS: BP 122/44
[2024-04-12] VITALS: BP 111/47
[2024-04-12 08:00] VITALS: BP 108/51
[2024-04-12 12:00] VITALS: BP 100/52
[2024-04-12 15:42] VITALS: BP 106/60
[2024-04-12 20:00] VITALS: BP 132/69
[2024-04-13] VITALS: BP 136/70
[2024-04-13 04:00] VITALS: BP 130/66
[2024-04-13 06:17] LABS: BASO % 0.1 % (0.0-1.0); EOS % 0.1 % (1.0-4.0); HEMATOCRIT 29.8 % (37.0-47.0); LYMPH # 0.4 10*3/uL (1.3-4.4); LYMPH % 5.2 % (27.0-41.0); MEAN CELL VOLUME 92.8 fl (81.0-99.0); MEAN CORPUSCULAR HGB 29.9 pg (27.0-31.0); MEAN CORPUSCULAR HGB CONC 32.2 g/dl (33.0-37.0); MEAN PLATELET VOLUME 9.5 fl (9.6-12.3); MONO # 0.5 10*3/uL (0.1-1.0); MONO % 6.1 % (3.0-9.0); NEUT # 6.7 10*3/uL (2.3-7.9); PLATELET COUNT AUTOMATED 221 10*3/uL (130-400); RED BLOOD COUNT 3.21 10*6/uL (4.10-5.10); RED CELL DISTRI WIDTH 14.3 % (0-14.5); WHITE BLOOD COUNT 7.7 10*3/uL (4.8-10.8)
[2024-04-13 08:00] VITALS: BP 104/81
[2024-04-13] MEDS ORDERED: RIVASTIGMINE 13.3 MG/24 HR TDM T SCH (10:00)
[2024-04-13 12:00] VITALS: BP 119/94
[2024-04-13] MEDS ORDERED: ENOXAPARIN40 MG/0.2 SC (14:10)
== END 2024-04-13 15:41 | DRG 522 ==
LOC: ED 16:52 → EDHOLD 18:16 → 4E 18:16
PROVIDERS: Emergency Medicine; Internal Medicine; Student in an Organized Health Care Education/Training Program; ADMIT Student in an Organized Health Care Education/Training Program; ATTEND Student in an Organized Health Care Education/Training Program
PROC: 0SRS01Z Replacement of Left Hip Joint, Femoral Surface with Metal Synthetic Substitute, Open Approach (ICD-10-PCS; principal; 2024-04-08)
PROC: 3E0T3BZ Introduction of Anesthetic Agent into Peripheral Nerves and Plexi, Percutaneous Approach (ICD-10-PCS; 2024-04-08)
DX: S72.032A Displaced midcervical fracture of left femur, initial encounter for closed fracture (principal); F23 Brief psychotic disorder; D64.9 Anemia, unspecified; E87.6 Hypokalemia; J44.9 Chronic obstructive pulmonary disease, unspecified; J43.9 Emphysema, unspecified; E78.5 Hyperlipidemia, unspecified; F03.90 Unspecified dementia, unspecified severity, without behavioral disturbance, psychotic disturbance, mood disturbance, and anxiety; E87.8 Other disorders of electrolyte and fluid balance, not elsewhere classified; E11.65 Type 2 diabetes mellitus with hyperglycemia; I10 Essential (primary) hypertension; Z88.8 Allergy status to other drugs, medicaments and biological substances; Z91.09 Other allergy status, other than to drugs and biological substances; Z79.899 Other long term (current) drug therapy; Z79.01 Long term (current) use of anticoagulants; Z79.2 Long term (current) use of antibiotics; Z98.891 History of uterine scar from previous surgery; Z87.891 Personal history of nicotine dependence; Z82.49 Family history of ischemic heart disease and other diseases of the circulatory system; Z82.3 Family history of stroke; Z80.8 Family history of malignant neoplasm of other organs or systems; W18.39XA Other fall on same level, initial encounter; Y93.89 Activity, other specified; Y92.89 Other specified places as the place of occurrence of the external cause; Y99.8 Other external cause status

== ENCOUNTER → 2024-04-24 | Outpatient (CLI) | payer MEDICARE ==
[~2024-04-24] MED LIST changes: +ENOXAPARIN40 MG/0.2 SC; +LISINOPRIL40 MG PO; +SEROQUEL50 MG PO
== END | disposition home or self-care (01) ==
LOC: ORTHO 00:56
PROVIDERS: ATTEND Orthopaedic Surgery
DX: S72.032D Displaced midcervical fracture of left femur, subsequent encounter for closed fracture with routine healing (principal); X58.XXXD Exposure to other specified factors, subsequent encounter

== ENCOUNTER → 2024-05-19 | Outpatient (CLI) | payer MEDICARE | END | disposition home or self-care (01) | LOC: US 11:03 | PROVIDERS: ATTEND Family Medicine | DX: S72.032D Displaced midcervical fracture of left femur, subsequent encounter for closed fracture with routine healing (principal); X58.XXXD Exposure to other specified factors, subsequent encounter ==

== ENCOUNTER 2024-06-05 20:16 | Emergency (ER) | payer MEDICARE ==
[~2024-06-05] VITALS: Ht 165.1 cm; Wt 95.3 kg
== END 2024-06-06 00:08 | disposition home or self-care (01) ==
LOC: ED 20:16
DX: M25.552 Pain in left hip (principal); Z98.890 Other specified postprocedural states; Z88.6 Allergy status to analgesic agent; Z88.5 Allergy status to narcotic agent; Z79.899 Other long term (current) drug therapy; Z90.710 Acquired absence of both cervix and uterus; Z87.891 Personal history of nicotine dependence; Z96.642 Presence of left artificial hip joint